=== PATIENT | male | born 1985 | race Caucasian/White ===

== ENCOUNTER 2017-02-10 18:14 | Emergency (ER) | payer MEDICAID, MEDICARE ==
[2017-02-10] MEDS ORDERED: Adacel (T-DAP) 0.5 ML VIAL ONE (19:28)
--- NOTE | 2017-02-10 19:45 | RAD ---
RIGHT FOOT THREE VIEW 02/10/17 HISTORY: Stepped on a mildred nail with right foot. COMPARISON: None. FINDING/IMPRESSION: No acute fracture or malalignment. Bipartite lateral sesamoid of the hallux. There appears to be some radiopaque foreign material in the plantar aspect of the hindfoot in two se parate areas. These are annotated on the films. These are at the level of the posterior process of t he calcaneus and the small punctate focus of 6 mm from the skin surface on the lateral radiograph an d the larger more anterior focus of 7 mm from the skin surface on the lateral radiograph. POS: [facility]
== END 2017-02-10 20:05 | disposition home or self-care (01) ==
LOC: NAV ERS 18:14
DX: S91.331A Puncture wound without foreign body, right foot, initial encounter (principal); J45.909 Unspecified asthma, uncomplicated; Z23 Encounter for immunization; W21.31XA Struck by shoe cleats, initial encounter
CPT/HCPCS: 90471; 90715

== ENCOUNTER 2017-10-13 10:28 | Emergency (ER) | payer MEDICARE, MEDICAID ==
[2017-10-13] MEDS ORDERED: Ibuprofen 200 MG TAB ONE (10:50)
== END 2017-10-13 11:45 | disposition home or self-care (01) ==
LOC: NAV ERS 10:28
DX: J02.9 Acute pharyngitis, unspecified (principal); J45.909 Unspecified asthma, uncomplicated
CPT/HCPCS: 87081; 87430; 99283

== ENCOUNTER 2019-01-26 11:15 | Emergency (ER) | payer MEDICARE, OTHER | END 2019-01-26 11:45 | disposition home or self-care (01) | LOC: NAV ERS 11:15 | DX: H60.92 Unspecified otitis externa, left ear (principal); J45.909 Unspecified asthma, uncomplicated; K21.9 Gastro-esophageal reflux disease without esophagitis; F32.9 Major depressive disorder, single episode, unspecified | CPT/HCPCS: 99282 ==

== ENCOUNTER 2019-02-25 18:03 | Emergency (ER) | payer MEDICARE, OTHER | END 2019-02-25 18:45 | disposition home or self-care (01) | LOC: NAV ERS 18:03 | DX: J02.9 Acute pharyngitis, unspecified (principal); K21.9 Gastro-esophageal reflux disease without esophagitis; J45.909 Unspecified asthma, uncomplicated; F32.9 Major depressive disorder, single episode, unspecified | CPT/HCPCS: 99281 ==